=== PATIENT | male | born 1975 | race Caucasian/White ===

== ENCOUNTER 2022-04-23 22:40 | Emergency (ER) | payer MEDICARE, MEDICAID, SELFPAY ==
[2022-04-23 22:36] VITALS: BMI 15.5
[2022-04-23 22:38] VITALS: BP 106/69; PULSE 90; RESP 19; TEMP 36.8; O2SAT 99
--- NOTE | 2022-04-23 23:18 | CTR_ITS ---
PROCEDURE INFORMATION: Exam: CT Head Without Contrast Exam date and time: 04/23/2022 11:38 PM Age: 46 years old Clinical indication: Injury or trauma; Fall; Concussion/head injury; Injury details: Fell three days ago and three months ago. ; Additional info: Fall, headache TECHNIQUE: Imaging protocol: Computed tomography of the head without contrast. Radiation optimization: All CT scans at this facility use at least one of these dose optimization techniques: automated exposure control; mA and/or kV adjustment per patient size (includes targeted exams where dose is matched to clinical indication); or iterative reconstruction. COMPARISON: No relevant prior studies available. RADIATION DOSE METRICS: Total DLP (mGy-cm): 851.36 FINDINGS: Brain: There is a subacute right convexity subdural hematoma with maximal thickness of 6 mm. There is mass effect on the right cerebral hemisphere without midline shift. No parenchymal hemorrhage. No subarachnoid hemorrhage. No infarct. Cerebral ventricles: No ventriculomegaly. Paranasal sinuses: There is mucosal thickening in the ethmoid sinuses. No air-fluid levels. Mastoid air cells: Visualized mastoid air cells are well aerated. Bones/joints: Unremarkable. No acute fracture. Soft tissues: Unremarkable. CT/CT head wo con* [id number] IMPRESSION: Right convexity subacute subdural hematoma measuring 6 mm in thickness. No midline shift
--- NOTE | 2022-04-24 00:50 | PC.NURSE ---
Pt. states that he has been seen for this head bleed at [facility] and is set up with an appointment with a brain surgeon, but thinks they are mean to him so wants to come here for a second opinion. I asked what it was he wanted a second opinion on , if he did not believe them or what the problem was. The patient states that the acted like they did not want him there lately.
[2022-04-24 02:26] VITALS: BP 110/68; PULSE 72; RESP 18; O2SAT 97
--- NOTE | 2022-04-24 02:54 | ED_ITS ---
HPI - Fall General: Chief Complaint: Fall Stated Complaint: headache Time Seen by Provider: 04/24/22 00:09 Source: patient History of Present Illness: 46yo male who felt striking his head on concrete 4 days ago. He was seen at [facility] in [facility]. He was diagnosed with a subdural hematoma, evaluated, and released. He has a follow-up appointment with neurosurgery in 2 weeks. He has been having headaches since he was released. He dialed 911 and came in on an ambulance tonight. When asked why he did this, instead of going back to [facility], he says I just do not think that care about me anymore . I asked him why he believes this, and he says because they have seen me so many times for my falls . He has no focal neurologic symptoms. He simply has a continued headache. He is asked whether or not he has any other symptoms, he states I am hungry . complaint: fall Onset (ago): day(s) Fall from: standing Fall witnessed: yes, by bystander Place fall occurred: street Loss of consciousness: None Prolonged down time: no Symptoms prior to fall: none Location of injury: head Associated symptoms-after fall: Reports headache(s); Denies abdominal pain, chest pain, confusion, difficulty walking, lightheadedness, neck pain, numbness or short of breath Review of Systems Const: Denies: fever(s) Eyes: Denies: blurry vision ENMT: Denies: throat pain Card: Denies: chest pain or lightheadedness Resp: Denies: dyspnea GI: Denies: abdominal pain or vomiting Musc: Denies: neck pain Neuro: Reports: headache(s); Denies: difficulty walking or confusion Physical Exam Const: COMMON NORMALS: no acute distress GENERAL APPEARANCE: cooperative, ill appearing and frail appearing (Mild) HENMT: COMMON NORMALS: normocephalic, atraumatic and Normal external nose present HEAD & SCALP: normocephalic and atraumatic FACE & SINUS: normal facial exam NOSE: Normal external nose present TEETH & GINGIVA: Yes poor dentition Eye: COMMON NORMALS: Equal, round and reactive pupils present and EOMs intact bilaterally PUPIL: Yes Equal, round and reactive pupils present Neck/C-Spine: GENERAL: Yes trachea midline Chest: CHEST: Yes Symmetrical chest wall rise Resp: COMMON NORMALS: normal respiratory effort, No retractions and clear to auscultation bilaterally AUSCULTATION: clear to auscultation bilaterally Cardio: COMMON NORMALS: regular rate and regular rhythm RATE: regular rate RHYTHM: regular rhythm GI: COMMON NORMALS: Normal to inspection, nondistended, normoactive bowel sounds present and Soft to palpation PALPATION: Yes Soft to palpation Extremity: COMMON NORMALS: no pedal edema Neuro: MARTINA COMA SCALE: document GCS findings Martina coma scale eye opening: Spontaneous Monroe coma scale verbal response: Orientated Monroe coma scale motor response: Obey commands Martina coma scale total score: 15 CRANIAL NERVES: Yes CN normal except as noted COORDINATION/BALANCE: [id number] test normal and gluq-pv-[id number] test normal SPEECH: speech normal MOTOR EXAM: Pronator motor function not present and Normal motor muscle tone present throughout COORDINATION: [id number] test normal and [id number]-[id number] test normal Course Vital Signs: Vital signs: Vital Signs Temperature 98.3 F 04/23/22 22:38 Pulse Rate 72 04/24/22 02:26 Respiratory Rate 18 04/24/22 02:26 Blood Pressure 110/68 04/24/22 02:26 Pulse Oximetry 97 04/24/22 02:26 MDM - Fall Medical Decision Making Head CT showning 4mm of epidural blood with no evidence of midline shift. blood is subacute. he has already been evaluated and treated by neurosurgery at an outside facility for this and has appropriate outpt followup. He'll be discharged. No alarming neurological signs tonight. Lab Data Radiology Impressions Head CT 04/23/22 23:18 IMPRESSION: Right convexity subacute subdural hematoma measuring 6 mm in thickness. No midline shift ADDENDUM: 04/24/22 0002 THIS REPORT CONTAINS FINDINGS THAT MAY BE CRITICAL TO PATIENT CARE. The findings were verbally communicated via telephone conference with SCAR CARL at 12:00 AM CDT on 04/24/2022. The findings were acknowledged and understood. Discharge Plan Discharge Patient Disposition: Home Clinical Impression: Intracranial subdural hematoma Condition: Stable Prescriptions: New amitriptyline 10 mg tablet 10 mg PO DAILY Qty: 30 0RF Discharge Orders: Discharge ED (Routine); Ordered 04/24/22 Ordered By: Scar Carl Patient Instructions: Chronic Post Traumatic Headache (ED) Activity Restrictions/Additional Instructions: Keep your specialist appointment in a couple of weeks. In the meantime, fill the medication and try it, as it can help with chronic headache related to traumatic brain injury. Coding Level of Care Code ED Director Of Trauma for Svetlana Fwd Exam Expanded Problem Focused
== END 2022-04-24 02:28 | disposition home or self-care (01) ==
PROVIDERS: Emergency Provider Emergency Medicine
DX: I62.00 Nontraumatic subdural hemorrhage, unspecified (principal)
CPT/HCPCS: 70450; 99283